=== PATIENT | male | born 2000 | race African-American/Black ===

== ENCOUNTER 2022-01-19 13:00 | Emergency (ER) | payer OTHER ==
[2022-01-19 14:10] LABS: #Eosinphils 0.1 thou/uL (0.0-0.7); #Lymphocytes 1.4 thou/uL (1.20-3.40); #Monocytes 0.4 thou/uL (0.11-0.59); #Neutrophils 2.3 thou/uL (1.40-6.50); %Basophils 0.5 % (0.0-1.0); %Eosinophils 2.2 % (0.0-10.0); %Lymphocytes 34.4 % (28.0-48.0); %Monocytes 8.4 % (0.0-4.0); %Neutrophils 54.4 % (31.0-61.0); Hemoglobin 14.1 g/dL (14.0-18.0); Mean Corpuscular HGB CONC 34.1 g/dL (32.0-36.0); Mean Corpuscular Hemoglobin 33.5 pg (25.0-35.0); Mean Corpuscular Volume 98.2 fL (78.0-98.0); Mean Platelet Volume 8.3 fL (7.4-10.4); Platelet Count 218 thou/uL (130-400); RBC Distribution Width 10.6 % (11.5-14.5); White Blood Cell (WBC) Count 4.2 thou/uL (4.8-10.8)
[2022-01-19 14:21] LABS: INR-International Normal Ratio 1.2; PTT 27.6 sec (22.9-36.1); Prothrombin Time 15.6 sec (12.0-14.7)
[2022-01-19 14:30] LABS: ALT (SGPT) 17 U/L (8-55); AST (SGOT) 23 U/L (10-45); Albumin 4.3 g/dL (3.5-5.0); Alkaline Phosphatase 74 U/L (50-130); Anion Gap 12 mmol/L (10-20); BUN (Urea Nitrogen) 13 mg/dL (8.4-21.0); Bilirubin, Total 1.2 mg/dL (0.2-1.2); Calc. Creatinine Clearance 0 mL/min (70-130); Calcium 9.4 mg/dL (7.8-10.44); Carbon Dioxide 25 mmol/L (22-29); Chloride 107 mmol/L (98-107); Estimated GFR 129; Globulin 3.4 g/dL (2.4-3.5); Glucose 91 mg/dL (70-105); Potassium 3.9 mmol/L (3.5-5.1); Protein, Total 7.7 g/dL (6.0-8.3); Sodium 140 mmol/L (136-145)
[2022-01-19] MEDS ORDERED: Enoxaparin Sodium 80 MG/0.8 ML SYRINGE ONE (15:03)
== END 2022-01-19 15:48 ==
LOC: ERS 13:00 → EEVIPCON 13:00 → ERS 15:48
DX: I82.412 Acute embolism and thrombosis of left femoral vein (principal); I82.432 Acute embolism and thrombosis of left popliteal vein; D68.59 Other primary thrombophilia
CPT/HCPCS: 36415; 80053; 85025; 85610; 85730; 96372; J1650